=== PATIENT | female | born 1960 | race Caucasian/White ===

== ENCOUNTER 2018-09-24 18:34 | Inpatient (IN) | payer MEDICAID, OTHER ==
[~2018-09-24] VITALS: Ht 162.6 cm; Wt 68.5 kg
[2018-09-24] MEDS ORDERED: KETOROLAC 30MG/ML VIAL IV STA (20:59)
[2018-09-24] MEDS ORDERED: SODIUM CHLORIDE 0.9% 1,000 ML IV ONE (20:59)
[2018-09-24] MEDS ORDERED: ONDANSETRON HCL 4MG/2ML INJ IV STA (20:59)
[2018-09-24] MEDS ORDERED: MAGNESIUM/ALUMINUM HYDROXIDE/SIMETHICONE 30ML UDC PO STA (20:59)
[2018-09-24 21:27] LABS: BASOPHILS % 0.5 % (0.0-2.0); EOSINOPHILS % 0.1 % (0.0-5.0); HEMATOCRIT. 40.9 % (36.0-48.0); HEMOGLOBIN. 13.9 g/dL (12.0-16.0); LYMPHOCYTES % 6.9 % (20.0-50.0); MEAN CORPUSCULAR HEMOGLOBIN 27.8 pg (28.0-32.0); MEAN PLATELET VOLUME 8.5 fl (7.4-10.4); MONOCYTES % 3.5 % (2.0-8.0); PLATELET 272 x1000/uL (130-400); RED BLOOD CELL COUNT 4.99 mill/uL (4.2-5.4); RED CELL DISTRIBUTION WIDTH 13.4 % (11.6-14.6)
[2018-09-24 21:33] LABS: CHLORIDE 105 mEq/L (98-107)
[2018-09-24] MEDS ORDERED: PIPERACILLIN SODIUM/TAZOBACTAM 4.5 G in DEXT 5% WATER 100 ML IV SCH (22:30)
[2018-09-24 22:39] LABS: CLARITY URINE CLEAR (CLEAR); COLOR URINE YELLOW (YELLOW); KETONES URINE TRACE (NEGATIVE); LEUKOCYTE ESTERASE URINE NEGATIVE (NEGATIVE); NITRITE URINE NEGATIVE (NEGATIVE); OCCULT BLOOD URINE TRACE (NEGATIVE); PH URINE 6.5 (4.5-8.0); PROTEIN URINE NEGATIVE (NEGATIVE); SPECIFIC GRAVITY URINE 1.014 (1.005-1.030); UROBILINOGEN URINE 0.2 E.U./dL (0.2-1.0)
[2018-09-25] MEDS ORDERED: KETOROLAC 30MG/ML VIAL IV PRN
[2018-09-25] MEDS ORDERED: DIPHENHYDRAMINE 50MG/ML VIAL IV PRN
[2018-09-25] MEDS ORDERED: ONDANSETRON HCL 4MG/2ML INJ IV PRN
[2018-09-25] MEDS ORDERED: ACETAMINOPHEN 325MG TABLET PO PRN
[2018-09-25] MEDS ORDERED: CLONIDINE 0.1MG TABLET PO PRN
[2018-09-25 00:45] VITALS: BP_SYST 103; BP_SYST 107; BP_DIAS 40; BP_DIAS 41
[2018-09-25] MEDS: DEXT 5%/0.45% NACL 1000ML 1,000 ML IV SCH ×2 (02:06→12:38)
[2018-09-25 04:00] VITALS: BP 102/51
[2018-09-25] MEDS ORDERED: LEVOFLOXACIN 500MG PREMIX 100 ML IV SCH ×2 (06:00)
[2018-09-25 08:00] VITALS: BP 132/51
[2018-09-25] MEDS ORDERED: FAMOTIDINE 20MG/2ML VIAL IV SCH (09:00)
[2018-09-25 11:02] LABS: BASOPHILS % 0.8 % (0.0-2.0); EOSINOPHILS % 1.8 % (0.0-5.0); HEMOGLOBIN. 12.7 g/dL (12.0-16.0); LYMPHOCYTES % 26.9 % (20.0-50.0); MEAN CORPUSCULAR HEMOGLOBIN 28.7 pg (28.0-32.0); MEAN CORPUSCULAR VOLUME 81.4 fL (81.0-99.0); MEAN PLATELET VOLUME 8.8 fl (7.4-10.4); MONOCYTES % 11.2 % (2.0-8.0); NEUTROPHILS % 59.3 % (40.0-76.0); PLATELET 246 x1000/uL (130-400); RED BLOOD CELL COUNT 4.42 mill/uL (4.2-5.4); RED CELL DISTRIBUTION WIDTH 13.3 % (11.6-14.6)
[2018-09-25 11:24] LABS: CHLORIDE 108 mEq/L (98-107)
[2018-09-25 12:00] VITALS: BP 131/49
[2018-09-25 15:28] VITALS: BP 126/70
== END 2018-09-25 15:39 | disposition home or self-care (01) ==
LOC: ER 18:34 → 6EST 23:10 → EDBEDREQTM 23:23 → EDBEDREQ 23:23 → ENRESERV 23:46
PROVIDERS: ADMIT Internal Medicine; ATTEND Emergency Medicine
DX: K80.20 Calculus of gallbladder without cholecystitis without obstruction (principal); Z83.3 Family history of diabetes mellitus; Z88.6 Allergy status to analgesic agent; Z98.51 Tubal ligation status
CPT/HCPCS: 36415; 74176; 76705; 80048; 81003; 83036; 93005; 96374; 96375; 99285; J1885; J1956; J2405; J2543; J3490; J7030; J7060